=== PATIENT | male | born 1955 | race Caucasian/White ===

== ENCOUNTER → 2016-10-09 | Outpatient (CLI) | payer BC | END | disposition home or self-care (01) | LOC: NUC 09:47 | DX: C79.51 Secondary malignant neoplasm of bone (principal); C61 Malignant neoplasm of prostate; R97.20 Elevated prostate specific antigen [PSA] | CPT/HCPCS: 78306; A9503 ==

== ENCOUNTER → 2017-08-22 | Outpatient (CLI) | payer BC | END | disposition home or self-care (01) | LOC: NUC 10:45 | DX: C61 Malignant neoplasm of prostate (principal); C79.51 Secondary malignant neoplasm of bone; Z92.21 Personal history of antineoplastic chemotherapy | CPT/HCPCS: 78306; A9503 ==